=== PATIENT | female | born 1960 | race African-American/Black ===

== ENCOUNTER 2016-11-17 00:06 | Emergency (ER) | payer OTHER ==
[~2016-11-17] VITALS: Ht 167.6 cm; Wt 59.0 kg
[~2016-11-17 00:06] MED LIST: PROIN3
[2016-11-17] MEDS ORDERED: KETOROLAC 30MG/ML VIAL IM ONE (04:30)
[2016-11-17 06:55] VITALS: BP 146/90
== END 2016-11-17 06:58 | disposition home or self-care (01) ==
LOC: ER 00:07
DX: S39.011A Strain of muscle, fascia and tendon of abdomen, initial encounter (principal); F17.210 Nicotine dependence, cigarettes, uncomplicated; F12.10 Cannabis abuse, uncomplicated; Z98.51 Tubal ligation status; X50.0XXA Overexertion from strenuous movement or load, initial encounter; Y93.89 Activity, other specified; Y92.89 Other specified places as the place of occurrence of the external cause; Y99.8 Other external cause status
CPT/HCPCS: 73521; 96372; 99284; J1885; Z7610